=== PATIENT | female | born 1935 | race Caucasian/White ===

== ENCOUNTER 2018-06-26 10:53 | Emergency (ER) | payer OTHER, MEDICARE ==
[2018-06-26 11:15] VITALS: BP 155/73; PULSE 74; TEMP 98.6; BMI 22.9
--- NOTE | 2018-06-26 11:43 | PDOC ---
Attending Attestation - Resident Resident Name: Emmanuel Bernstein - ED Attending Attestation I have performed the following: I have examined & evaluated the patient, The case was reviewed & discussed with the resident, I agree w/resident's findings & plan, Exceptions are as noted - HPI HPI: 06/26/18 12:43 Patient with chronic gait instability, undergoing physical therapy for balance issues, tripped while going downstairs, injuring forehead, right shoulder, and right arm. No loss of consciousness. Arose and was normally ambulatory immediately thereafter. No visual or focal neurologic symptoms, chest pain, shortness of breath, abdominal pain, nausea, vomiting, diarrhea, limited range of motion or pain with movement of the arms or legs. - Physicial Exam PE: 06/26/18 12:45 Physical exam is significant for contusion and abrasion of the right mid forehead, multiple skin tears of the right arm without any sign of fracture and with full movement that is nonpainful, and point tenderness over the before meals joint of the right shoulder with mild swelling in this area. Mental status and neurological exam is otherwise intact. As are pulmonary, cardiac, and abdominal exams. - Medical Decision Making 06/26/18 12:47 Impression: Head injury without significant neurological deficit, unlikely intracranial bleed. Multiple abrasions and skin tears. Injury to the before meals joint right shoulder Plan: Since the patient is on baby aspirin, head CT, CT of the cervical spine, performed. Also x-ray of the right shoulder. These studies are negative for serious injury. Wounds were dressed and wound care was discussed with the patient and her family. Clinical, neurologic, and hemodynamic status remained stable. Head injury instructions were supplied. Patient fully ambulatory and in no significant pain or other distress upon discharge with family to follow-up as directed with primary physician 24 hours. 06/26/18 14:00
--- NOTE | 2018-06-26 13:36 | PDOC ---
History of Present Illness - General Chief Complaint: Injury Stated Complaint: FALL AT HOME DOWN 4-5 STEPS LACERATION TO HEAD Time Seen by Provider: 06/26/18 11:52 - History of Present Illness Initial Comments: 06/26/18 13:35 Ms. Andrews is an 82 yo female w/ pmh of hypothyroidism, HTN, HLD who presents for evaluation after fall. Patient reports she was walking down the stairs in her house directly after getting up this morning and lost her balance, falling down 4-5 stairs. Denies LOC however endorses hitting her head. Then got up and walked after her to have him bring her to the ER. She is currently complaining of pain to head and R arm where she also scraped her arm. The patient denies chest pain, shortness of breath, and dizziness. Denies fever , chills, nausea, vomit, diarrhea and constipation. Denies dysuria, frequency, urgency and hematuria. Allergies: NKDA Past History - Past Medical History Allergies/Adverse Reactions: Allergies Allergy/AdvReac Type Severity Reaction Status Date / Time No Known Allergies Allergy Verified 06/08/16 23:40 Home Medications: Ambulatory Orders Aspirin [ASA -] 81 mg PO DAILY 06/08/16 Atorvastatin Ca [Lipitor] 20 mg PO HS 06/08/16 Levothyroxine [Synthroid -] 125 mcg PO DAILY 06/08/16 COPD: No Hypercholesterolemia: Yes Thyroid Disease: Yes - Immunization History Immunization Up to Date: Yes - Suicide/Smoking/Psychosocial Hx Smoking History: Former smoker Have you smoked in the past 12 months: No If you are a former smoker, when did you quit?: 30 YEARS Information on smoking cessation initiated: Yes Hx Alcohol Use: No Drug/Substance Use Hx: No Substance Use Type: None Review of Systems - Review of Systems Comments:: 06/26/18 13:38 GENERAL/CONSTITUTIONAL: No fever or chills. No weakness. HEAD, EYES, EARS, NOSE AND THROAT: +Pain to R forehead where she hit her head on the tile. No change in vision. No ear pain or discharge. No sore throat. CARDIOVASCULAR: No chest pain or shortness of breath RESPIRATORY: No cough, wheezing, or hemoptysis. GASTROINTESTINAL: No nausea, vomiting, diarrhea or constipation. GENITOURINARY: No dysuria, frequency, or change in urination. MUSCULOSKELETAL: +Right forearm pain with injury after fall; right shoulder pain reported as well. SKIN: No rash NEUROLOGIC: No headache, vertigo, loss of consciousness, or change in strength/ sensation. ENDOCRINE: No increased thirst. No abnormal weight change HEMATOLOGIC/LYMPHATIC: No anemia, easy bleeding, or history of blood clots. ALLERGIC/IMMUNOLOGIC: No hives or skin allergy. *Physical Exam - Vital Signs Last Vital Signs Temp Pulse Resp BP Pulse Ox 98.6 F 74 16 155/73 96 06/26/18 10:56 06/26/18 10:56 06/26/18 10:56 06/26/18 10:56 06/26/18 10:56 - Physical Exam Comments: 06/26/18 13:39 GENERAL: Awake, alert, and fully oriented, in no acute distress HEAD: +Approx. 3cm diameter abbrasion to R forehead. EYES: PERRLA, EOMI, sclera anicteric, conjunctiva clear ENT: Auricles normal inspection, hearing grossly normal, nares patent, oropharynx clear without exudates. Moist mucosa NECK: Normal ROM, supple, no lymphadenopathy, JVD, or masses LUNGS: No distress, speaks full sentences, clear to auscultation bilaterally HEART: Regular rate and rhythm, normal S1 and S2, no murmurs, rubs or gallops, peripheral pulses normal and equal bilaterally. ABDOMEN: Soft, nontender, normoactive bowel sounds. No guarding, no rebound. No masses EXTREMITIES: +Multiple shallow abbrasions to right proximal dorsal forearm not requiring closure; 5-6 cm in length. +TTP at Right AC joint; some swelling noted as well. NEUROLOGICAL: Cranial nerves II through XII grossly intact. Normal speech, normal gait, no focal sensorimotor deficits SKIN: Warm, Dry, normal turgor, no rashes or lesions noted. 06/26/18 14:12 ED Treatment Course - RADIOLOGY Radiology Studies Ordered: Category Date Time Status CERVICAL SPINE CT W/O CONTR [CT] Stat CT Scan 06/26/18 11:[address] WITHOUT CONTRAST [CT] Stat CT Scan 06/26/18 11:52 Completed SHOULDER-RIGHT [RAD] Stat Radiology 06/26/18 11:58 Completed Medical Decision Making - Medical Decision Making 06/26/18 13:40 Ms. Andrews is an 82 yo female w/ pmh as described who presents post fall. Patient Head / C-spine CT ordered both negative for acute fracture. R shoulder XR likewise negative. Patient abbrasion to forehead and arms cleaned and closed with steri-strips (forehead) and sterile dressing (arm). Discharging to home with outpatient follow-up. *DC/Admit/Observation/Transfer Diagnosis at time of Disposition: Fall Qualifiers: Encounter type: initial encounter Qualified Code(s): W19.XXXA - Unspecified fall, initial encounter - Discharge Dispostion Disposition: HOME Condition at time of disposition: Stable - Referrals - Patient Instructions Printed Discharge Instructions: DI for Laceration Repair Steri-Strips, How to Prevent Falls Additional Instructions: You were evaluated today in the ER after your fall. Please follow-up with primary care provider in 3-4 days for further evaluation and wound check. You may take over the counter pain medicine per package instructions for pain control. Return to ER if any fever, chills, redness, warmth to injury site, or other concerning symptoms. - Post Discharge Activity
== END 2018-06-26 14:02 | disposition home or self-care (01) ==
LOC: FER 10:53
PROC: 0HQ1XZZ Repair Face Skin, External Approach (ICD-10-PCS; principal; 2018-06-26)
DX: S00.81XA Abrasion of other part of head, initial encounter (principal); W10.9XXA Fall (on) (from) unspecified stairs and steps, initial encounter; Y93.89 Activity, other specified; Y92.9 Unspecified place or not applicable; Z87.891 Personal history of nicotine dependence; E78.00 Pure hypercholesterolemia, unspecified; E07.9 Disorder of thyroid, unspecified
CPT/HCPCS: 70450-TC; 72125-TC; 73030-TC-RT-FY; 99282-25